=== PATIENT | male | born 2000 | race Caucasian/White ===

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

== ENCOUNTER 2021-04-29 15:15 | Emergency (ER) | payer OTHER ==
[~2021-04-29] VITALS: Ht 172.7 cm; Wt 71.4 kg
--- OUTSIDE RECORDS SUMMARY | 2021-04-29 15:26 | XMS ---
PreManage Notification: PRASANNA SINGER Security Kiln Pusher Events No recent Security Events currently on file CRITERIA MET - Group Notification CARE PROVIDERS There are no care providers on record at this time. Tiffanie has no Care Guidelines for this patient. Janeth VISIT COUNT (12 MO.) 1 [facility] TOTAL 1 NOTE: Visits indicate total known visits. ED/C VISIT TRACKING (12 MO.) 04/29/2021 15:18 [facility] [place] TYPE: Emergency COMPLAINT: - EYE PAIN INPATIENT VISIT TRACKING (12 MO.) No inpatient visits to display in this time frame [id number]
== END 2021-04-29 16:37 | disposition home or self-care (01) ==
LOC: ED 15:15
DX: S05.92XA Unspecified injury of left eye and orbit, initial encounter (principal); W25.XXXA Contact with sharp glass, initial encounter; Y99.0 Civilian activity done for income or pay; P96.0 Congenital renal failure; Z88.0 Allergy status to penicillin
CPT/HCPCS: 99283

== ENCOUNTER 2022-12-12 17:34 | Emergency (ER) | payer OTHER ==
[~2022-12-12] VITALS: Ht 172.7 cm; Wt 71.4 kg
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
[2022-12-12 18:31] VITALS: BP 139/85
== END 2022-12-12 18:33 | disposition home or self-care (01) ==
LOC: ED 17:34
DX: T23.231A Burn of second degree of multiple right fingers (nail), not including thumb, initial encounter (principal); T31.0 Burns involving less than 10% of body surface; X15.0XXA Contact with hot stove (kitchen), initial encounter; Z88.0 Allergy status to penicillin
CPT/HCPCS: 99283; A9270

== ENCOUNTER 2023-02-08 19:18 | Emergency (ER) | payer BC ==
[~2023-02-08] VITALS: Ht 172.7 cm; Wt 79.0 kg
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
--- OUTSIDE RECORDS SUMMARY | ~2023-02-08 | XMS | Continuity of Care Document ---
Demographics + + + | Address | [address] | | | [place] [address] | + + + | Preferred Language | Unknown | + + + | Marital Status | Never | + + + | Faith Affiliation | Unknown | + + + | Race | White | + + + | Ethnic Group | Not or | + + + Author + + + | Author | [facility] | + + + | Organization | [facility] | + + + | Address | [address] | | | [place] [address] | + + + | Phone | | + + + Care Team Providers + + + + | Care Surgical Tech Name | Role | Phone | + + + + Unavailable | Unavailable | + + + + Unavailable | Unavailable | + + + + Allergies and Intolerances + + + + + | date | description | facility | type | + + + + + | (no date) | Penicillin | [facility] | (unknown) | | | [facility] | | + + + + + | (no date) | Penicillin | [facility] | (unknown) | | | | Hospital | | + + + + + | (no date) | Penicillin | [facility] | (unknown) | | | | Hospital | | + + + + + | (no date) | Penicillin | [facility] | (unknown) | | | | Hospital | | + + + + + Encounters No information. Functional Status No information. Immunizations + + + + | date | description | facility | + + + + | 2014-08-29 00:00 | DTaP | [facility] | + + + + Medications No information. Problems + + + + | date | description | facility | + + + + | 2014-08-29 00:00 | Laceration of right thigh | [facility] | + + + + | 2014-09-06 00:00 | Encounter for removal of | [facility] | | | sutures | | + + + + | 2015-09-10 00:00 | Abscess of left forearm | [facility] | + + + + | 2015-09-10 00:00 | Cellulitis of left forearm | [facility] | | | | | + + + + | 2016-02-01 00:00 | Injury of extremity | [facility] | + + + + | 2017-03-03 00:00 | Encounter for medical | [facility] | | | screening examination | | + + + + | 2021-04-29 00:00 | Eye injury | [facility] | + + + + | 2022-12-12 [...]
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
[2023-02-08] MEDS ORDERED: MELOXICAM7.5 MG PO (22:42)
[2023-02-08] MEDS ORDERED: CYCLOBENZAPRINE10 MG PO (22:42)
[2023-02-08 23:00] VITALS: BP 146/76
== END 2023-02-08 23:00 | disposition home or self-care (01) ==
LOC: ED 19:18
DX: J03.90 Acute tonsillitis, unspecified (principal); Z88.0 Allergy status to penicillin
CPT/HCPCS: 96372; 99283; J1885; J3360

== ENCOUNTER 2023-03-25 07:40 | Emergency (ER) | payer BC ==
[~2023-03-25] VITALS: Ht 172.7 cm; Wt 76.2 kg
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
--- OUTSIDE RECORDS SUMMARY | ~2023-03-25 | XMS | Continuity of Care Document ---
Demographics + + + | Address | [address] [facility] [address] | | | [place] [address] | + + + | Preferred Language | Unknown | + + + | Marital Status | Never | + + + | Moravian Affiliation | Unknown | + + + | Race | White | + + + | Ethnic Group | Not or | + + + Author + + + | Author | [facility] | + + + | Organization | [facility] | + + + | Address | [address] | | | [place] [address] | + + + | Phone | | + + + Care Team Providers + + + + | Care Personal Service Workers Name | Role | Phone | + [...] | 2014-08-29 00:00 | DTaP | [facility] | + + + + Medications + + + + | date | description | facility | + + + + | 2014-08-29 00:00 | CEPHALEXIN | [facility] | + + + + | 2023-02-08 00:00 | MELOXICAM | [facility] | + + + + | 2023-02-08 00:00 | CYCLOBENZAPRINE HCL | [facility] | + + + + Problems + + + + | date | description | facility | + + + + | 2014-08-29 00:00 | Laceration of right thigh | [facility] | + + + + | 2014-09-06 00:00 | Encounter for removal of | [facility] | | | sutures | | + + + + | 2015-09-10 00:00 | Abscess of left forearm | [facility] | + + + + | 2015-09-10 00:00 | Cellulitis of left forearm | [facility] | | | | | + + + + | 2016-02-01 00:00 | Injury of extremity | [facility] | + + + + | 2017-03-03 00:00 | Encounter for medical | [facility] | | | screening examination | | + + + + | 2021-04-29 00:00 | Eye injury | [facility] | + + + + [...] | 2023-02-08 00:00 | Acquired torticollis | [facility] | + + + + [...]
[~2023-03-25 07:40] MED LIST changes: +CYCLOBENZAPRINE10 MG PO; +MELOXICAM7.5 MG PO
--- OUTSIDE RECORDS SUMMARY | 2023-03-25 07:47 | XMS ---
PreManage Notification: PRASANNA SINGER Security Fre[address] Stenographer Events No recent Security Events currently on file CRITERIA MET - Group Notification CARE PROVIDERS -, [place]- Dentist: [employer] [facility] PHONE: [phone] Tiffanie has no Care Guidelines for this patient. E.Truman VISIT COUNT (12 MO.) 3 K[facility] Keller TOTAL 3 NOTE: Visits indicate total known visits. ED/UCC VISIT TRACKING (12 MO.) 03/25/2023 07:41 [facility] [place] TYPE: Emergency COMPLAINT: - MIDDLE BACK PAIN 02/08/2023 19:20 [facility] [place] TYPE: Emergency COMPLAINT: - NECK AND HEAD PAIN DIAGNOSES: - Acute tonsillitis, unspecified - Allergy status to penicillin - Headache, unspecified 12/12/2022 17:36 [facility] [place] TYPE: Emergency [...] visits to display in this time frame [id number]
[2023-03-25] MEDS ORDERED: CYCLOBENZAPRINE10 MG PO (08:05)
[2023-03-25] MEDS ORDERED: PREDNISONE20 MG PO (08:05)
[2023-03-25 08:13] VITALS: BP 130/86
== END 2023-03-25 08:15 | disposition home or self-care (01) ==
LOC: ED 07:40
DX: S39.012A Strain of muscle, fascia and tendon of lower back, initial encounter (principal); X50.0XXA Overexertion from strenuous movement or load, initial encounter; Z88.0 Allergy status to penicillin
CPT/HCPCS: 99283